=== PATIENT | female | born 1955 | race Caucasian/White ===

== ENCOUNTER 2022-06-28 14:17 | Emergency (ER) | payer MEDICARE | END 2022-06-28 16:38 | disposition home or self-care (01) | LOC: FER 14:17 | DX: L89.322 Pressure ulcer of left buttock, stage 2 (principal); L89.312 Pressure ulcer of right buttock, stage 2; E11.9 Type 2 diabetes mellitus without complications; I10 Essential (primary) hypertension; Z28.310 Unvaccinated for COVID-19; Z88.5 Allergy status to narcotic agent | CPT/HCPCS: 99283 ==